=== PATIENT | male | born 1955 | race Two or more races ===

== ENCOUNTER 2020-07-25 09:15 | Inpatient (IN) | payer OTHER ==
[~2020-07-25] VITALS: Ht 175.3 cm; Wt 88.9 kg
[2020-07-31] MEDS ORDERED: ST. JOSEPH ASPI81 M2 (14:06)
[2020-07-31] MEDS ORDERED: IRBESARTAN300 MG (14:06)
[2020-08-02] MEDS ORDERED: DUI500 PO (12:49)
[2020-08-02] MEDS ORDERED: PERCOCET 5-3251 EACH PO (12:49)
[2020-08-02] MEDS ORDERED: ELIQUIS2.5 MG PO (12:49)
== END 2020-08-02 22:20 | DRG 470 ==
LOC: O/R 07-31 05:41 → SURH 07-31 07:00
PROVIDERS: ADMIT Orthopaedic Surgery; ATTEND Orthopaedic Surgery
PROC: 0QPH04Z Removal of Internal Fixation Device from Left Tibia, Open Approach (ICD-10-PCS; 2020-07-31)
PROC: 0SRD0J9 Replacement of Left Knee Joint with Synthetic Substitute, Cemented, Open Approach (ICD-10-PCS; principal; 2020-07-31 07:00)
DX: M17.12 Unilateral primary osteoarthritis, left knee (principal); D62 Acute posthemorrhagic anemia; T84.84XA Pain due to internal orthopedic prosthetic devices, implants and grafts, initial encounter; S82.292D Other fracture of shaft of left tibia, subsequent encounter for closed fracture with routine healing; G89.18 Other acute postprocedural pain; I10 Essential (primary) hypertension

== ENCOUNTER 2021-03-13 07:30 | Inpatient (IN) | payer OTHER ==
[~2021-03-13 07:30] MED LIST: DUI500 PO; ELIQUIS2.5 MG PO; IRBESARTAN300 MG; PERCOCET 5-3251 EACH PO; ST. JOSEPH ASPI81 M2
[2021-03-13] MEDS ORDERED: AZOR 5-20 MG T1 EACH (09:23)
[2021-03-20] MEDS ORDERED: AMLODIPINE BESYL5 MG (14:47)
[2021-03-20] MEDS ORDERED: ST. JOSEPH ASPI81 M2 (14:47)
[2021-03-21] MEDS ORDERED: DUI500 PO (17:03)
[2021-03-21] MEDS ORDERED: PERCOCET 10-321 EACH PO (17:03)
[2021-03-21] MEDS ORDERED: ELIQUIS2.5 MG PO (17:03)
== END 2021-03-21 20:56 | DRG 470 ==
LOC: SURH 07:30 → SURG 03-19 06:13 → O/R 03-19 06:13 → SURH 03-19 07:30 → SURG 03-19 12:49 → SURH 03-19 21:15 → SURG 03-21 20:56
PROVIDERS: ADMIT Orthopaedic Surgery; ATTEND Orthopaedic Surgery
PROC: 0SRC0J9 Replacement of Right Knee Joint with Synthetic Substitute, Cemented, Open Approach (ICD-10-PCS; principal; 2021-03-19 21:15)
DX: M17.11 Unilateral primary osteoarthritis, right knee (principal); D62 Acute posthemorrhagic anemia; M22.11 Recurrent subluxation of patella, right knee; Z20.822 Contact with and (suspected) exposure to COVID-19; I10 Essential (primary) hypertension